=== PATIENT | female | born 1990 | race American Indian/Alaskan Native ===

== ENCOUNTER 2018-09-10 16:10 | Emergency (ER) | payer OTHER ==
[2018-09-10 16:20] VITALS: BP 141/87
--- NOTE | 2018-09-10 16:21 | Emergency Department Report ---
Chief Complaint: Abdominal Pain Stated Complaint: ABD PAIN/CHEST PAIN Time Seen by Provider: 09/10/18 16:21 - HPI History of Present Illness: EPIGASTRIC PAIN W RADIATION TO THROAT CO N/V STATES NOT PREG PMH NONE PSH NONE NKDA RX NONE THC CIG MSE COMPLETED - Exam Vital Signs: Vital Signs 09/10/18 16:19 Temperature 98 F Pulse Rate 80 Respiratory 16 Rate Blood Pressure 141/87 [Right] O2 Sat by Pulse 97 Oximetry MSE screening note: Focused history and physical exam performed. Due to findings the following was ordered: ED Disposition for MSE Condition: Stable Instructions: Abdominal Pain (ED)
[2018-09-10] MEDS ORDERED: ZOFRAN ODT PO/SL ONE (16:22)
[2018-09-10] MEDS ORDERED: LIDOCAINE VISCOUS 2% PO ONE (16:22)
[2018-09-10] MEDS ORDERED: PEPCID PO ONE (16:22)
[2018-09-10] MEDS ORDERED: ALUM-MAG HYDROX-SIMETH 200-200-20MG/5ML PO ONE (16:22)
[2018-09-10 16:52] LABS: Basophils % (Auto) 0.5 % (0.0-1.8); Eosinophils # (Auto) 0.3 K/mm3 (0.0-0.4); Eosinophils % (Auto) 3.8 % (0.0-4.3); Hematocrit 38.8 % (30.3-42.9); Lymphocytes # (Auto) 2.7 K/mm3 (1.2-5.4); Lymphocytes % (Auto) 32.7 % (13.4-35.0); Mean Corpuscular HGB Conc 34 % (30-34); Mean Corpuscular Volume 83 fl (79-97); Monocytes # (Auto) 0.7 K/mm3 (0.0-0.8); Monocytes % (Auto) 8.6 % (0.0-7.3); Platelet Count 256 K/mm3 (140-440); Red Blood Count 4.68 M/mm3 (3.65-5.03)
[2018-09-10 17:00] LABS: Bilirubin,Urine NEG (Negative); Blood,Urine NEG (Negative); Color,Urine Yellow (Yellow); Protein,Urine <15 mg/dL mg/dL (Negative); Urobilinogen,Urine < 2.0 mg/dL (<2.0)
[2018-09-10 17:18] LABS: Alanine Aminotransferase 15 units/L (7-56); Albumin 3.8 g/dL (3.9-5); BUN/Creatinine Ratio 14; Blood Urea Nitrogen 10 mg/dL (7-17); Calcium 8.9 mg/dL (8.4-10.2); Hemolysis Index 1
[2018-09-10 17:23] LABS: Bilirubin,Direct < 0.2 mg/dL (0-0.2)
--- NOTE | 2018-09-10 18:09 | Emergency Department Report ---
<ZEE VILLEGASShashank Srinivasan - Last Filed: 09/10/18 20:29> ED Abdominal Pain HPI - General Chief Complaint: Abdominal Pain Stated Complaint: ABD PAIN/CHEST PAIN Time Seen by Provider: 09/10/18 16:21 - Related Data Allergies Allergy/AdvReac Type Severity Reaction Status Date / Time No Known Allergies Allergy Verified 09/10/18 16:28 ED Medical Decision Making - Lab Data Result diagrams: 09/10/18 16:42 09/10/18 16:42 ED Disposition Clinical Impression: Abdominal pain Disposition: DC-07 LEFT AGAINST MED ADVICE Condition: Stable Instructions: Abdominal Pain (ED) Referrals: MAURA GALINDO MD [Primary Care Provider] - 3-5 Days Forms: AMA Form <ORLANDO MCKEON - Last Filed: 10/24/18 15:00> ED Abdominal Pain HPI - General Source: patient Mode of arrival: Ambulatory Limitations: No Limitations - History of Present Illness Initial Comments: Patient is a 28-year-old female who is here complaining of some nausea vomiting since last night. Patient is having intermittent epigastric pain as well. Patient's boyfriend states that this is happened remotely in the past to her as well. Patient denies any fevers chills cough cold or congestion. Patient states pain is a 10 out of 10 at worst as a cramping sharp pain in the epigastrium. Migration to: epigastric Severity scale (0 -10): 10 Associated Symptoms: nausea, vomiting. denies: diarrhea ED Review of Systems ROS: Stated complaint: ABD PAIN/CHEST PAIN Other details as noted in HPI Comment: All other systems reviewed and negative ED Past Medical Hx - Past Medical History Previous Medical History?: No - Surgical History Past Surgical History?: No - Social History Smoking Status: Current Every Day Smoker Substance Use Type: Marijuana ED Physical Exam - General Limitations: No Limitations General appearance: alert, in no apparent distress - Head Head exam: Present: atraumatic, normocephalic - Eye Eye exam: Present: normal appearance, PERRL, EOMI - ENT ENT exam: Present: mucous membranes moist - Neck Neck exam: Present: normal inspection. Absent: tenderness - Respiratory Respiratory exam: Present: normal lung sounds bilaterally. Absent: respiratory distress, wheezes, rales, rhonchi, chest wall tenderness - Cardiovascular Cardiovascular Exam: Present: regular rate, normal rhythm, normal heart sounds. Absent: systolic murmur, diastolic murmur, rubs, gallop - GI/Abdominal GI/Abdominal exam: Present: soft, tenderness (epigastric), normal bowel sounds. Absent: distended, guarding, rebound, rigid - Extremities Exam Extremities exam: Present: normal inspection - Back Exam Back exam: Present: normal inspection - Neurological Exam Neurological exam: Present: alert, oriented X3 - Psychiatric Psychiatric exam: Present: normal affect, normal mood - Skin Skin exam: Present: warm, dry, intact, normal color. Absent: rash ED Course Vital Signs 09/10/18 09/10/18 16:19 16:26 Temperature 98 F 98.0 F Pulse Rate 80 80 Respiratory 16 16 Rate Blood Pressure 141/87 Blood Pressure 141/87 [Right] O2 Sat by Pulse 97 97 Oximetry ED Medical Decision Making - Lab Data Result diagrams: 09/10/18 16:42 09/10/18 16:42 Labs 09/10/18 09/10/18 09/10/18 16:42 16:42 16:49 WBC 8.3 RBC 4.68 Hgb 13.0 Hct 38.8 MCV 83 MCH 28 MCHC 34 RDW 14.0 Plt Count 256 Lymph % (Auto) 32.7 [place] % (Auto) 8.6 H Eos % (Auto) 3.8 Baso % (Auto) 0.5 Lymph # 2.7 Winston # 0.7 Eos # 0.3 Baso # 0.0 Seg Neutrophils % 54.4 Seg Neutrophils # 4.5 Sodium 139 Potassium 4.3 Chloride 107.4 H Carbon Dioxide 26 Anion Gap 10 BUN 10 Creatinine 0.7 Estimated GFR > 60 BUN/Creatinine Ratio 14 Glucose 108 H Calcium 8.9 Total Bilirubin 0.20 Direct Bilirubin < 0.2 Indirect Bilirubin 0.0 AST 13 ALT 15 Alkaline Phosphatase 68 Total Protein 6.7 Albumin 3.8 L Albumin/Globulin Ratio 1.3 Lipase 30 HCG, Qual Urine Color Yellow Urine Turbidity Clear Urine pH 7.0 Ur Specific [place] 1.016 Urine Protein <15 mg/dl Urine Glucose (UA) Neg Urine Ketones Neg Urine Blood Neg Urine Nitrite Neg Urine Bilirubin Neg Urine Urobilinogen < 2.0 Ur Leukocyte Esterase Neg Urine WBC (Auto) 1.0 Urine RBC (Auto) 1.0 U Epithel Cells (Auto) 2.0 09/10/18 16:54 WBC RBC Hgb Hct MCV MCH MCHC RDW Plt Count Lymph % (Auto) [place] % (Auto) Eos % (Auto) Baso % (Auto) Lymph # Winston # Eos # Baso # Seg Neutrophils % Seg Neutrophils # Sodium Potassium Chloride Carbon Dioxide Anion Gap BUN Creatinine Estimated GFR BUN/Creatinine Ratio Glucose Calcium Total Bilirubin Direct Bilirubin Indirect Bilirubin AST ALT Alkaline Phosphatase Total Protein Albumin Albumin/Globulin Ratio Lipase HCG, Qual Negative Urine Color Urine Turbidity Urine pH Ur Specific [place] Urine Protein Urine Glucose (UA) Urine Ketones Urine Blood Urine Nitrite Urine Bilirubin Urine Urobilinogen Ur Leukocyte Esterase Urine WBC (Auto) Urine RBC (Auto) U Epithel Cells (Auto) Critical care attestation.: If time is entered above; I have spent that time in minutes in the direct care of this critically ill patient, excluding procedure time. ED Disposition Is pt being admited?: No
--- NOTE | 2018-09-10 20:58 | Ultrasound Report ---
PROCEDURE: US GALLBLADDER TECHNIQUE: Real-time sonography in multiple planes of the gallbladder fossa and CBD with imaging of the adjacent liver, pancreas, and right kidney was performed with image documentation. CPT 00696 HISTORY: Abdominal pain COMPARISONS: None . FINDINGS: Liver: Normal size and echotexture with no evidence of cystic or solid mass lesion. Gallbladder: Fluid filled. No gallstones, wall thickening, pericholecystic fluid, or sonographic Mur phy's sign. Intrahepatic bile ducts: Normal . Extrahepatic bile ducts: Normal. Pancreas: Normal as visualized with suboptimal depiction of the pancreatic tail. Right kidney: Normal echotexture. No focal renal mass, calculus, or hydronephrosis. Other: No free fluid. IMPRESSION: Normal Examination . This document is electronically signed by Pawan Lara MD., September 10 2018 08:57:08 PM ET
== END 2018-09-10 20:35 | disposition left against medical advice (07) ==
LOC: ED 16:10
DX: R10.13 Epigastric pain (principal); R11.2 Nausea with vomiting, unspecified; F17.200 Nicotine dependence, unspecified, uncomplicated; F12.10 Cannabis abuse, uncomplicated
CPT/HCPCS: 36415; 76705; 80048; 80076; 81001; 83690; 84703; 85025; 93005; 93010; Q0162

== ENCOUNTER 2020-08-04 07:52 | Emergency (ER) | payer SELFPAY ==
[2020-08-04 08:01] VITALS: BP 120/91
[2020-08-04] MEDS ORDERED: DIPHENOXYLATE/ATROPINE TAB PO ONE (08:02)
[2020-08-04] MEDS ORDERED: KETOROLAC 10 MG TAB PO ONE (08:02)
[2020-08-04] MEDS ORDERED: ONDANSETRON 4 MG ODT TAB PO ONE (08:02)
--- NOTE | 2020-08-04 08:06 | Emergency Department Report ---
- General Chief Complaint: Upper Respiratory Infection Stated Complaint: HEADACHE/SORETHROAT/CONGESTED Time Seen by Provider: 08/04/20 08:02 Source: patient Mode of arrival: Ambulatory Limitations: No Limitations - History of Present Illness Initial Comments: 30-year-old female presents to the ER today with complaints of flulike symptoms. She states that her symptoms started yesterday. She reports generalized body aches, URI symptoms: Sore throat, productive cough, headache, nausea and diarrhea. Denies any vomiting. He reports no shortness of breath or wheezing, chest pain or abdominal pain. She denies any UTI symptoms. She denies any recent ill contacts, bad food intake or recent antibiotic use or travel. Her last menstrual cycle was July 09, 2020. She has a history of tobacco use but denies any other significant past history. MD Complaint: cough, rhinorrhea, nasal congestion, other (Bodyaches) -: days(s) (1) - Related Data Previous Rx's Medication Instructions Recorded Last Taken Type Diphenoxylate/Atropine [Lomotil] 1 tab PO Q6H PRN #20 tablet 08/04/20 Unknown Rx Ketorolac [Toradol] 10 mg PO Q6H PRN #20 tablet 08/04/20 Unknown Rx Ondansetron [Zofran Odt] 4 mg PO Q8HR PRN #15 tab.rapdis 08/04/20 Unknown Rx guaiFENesin/DEXTROMETHORPHAN 1 each PO 12 #20 tab.er.12h 08/04/20 Unknown Rx [Mucinex Dm ER 600-30 mg Tablet] Allergies Allergy/AdvReac Type Severity Reaction Status Date / Time No Known Allergies Allergy Verified 09/10/18 16:28 ED Review of Systems ROS: Stated complaint: HEADACHE/SORETHROAT/CONGESTED Other details as noted in HPI Comment: All other systems reviewed and negative Constitutional: denies: chills, fever Eyes: denies: eye pain, eye discharge, vision change ENT: throat pain Respiratory: cough Gastrointestinal: nausea, diarrhea Neurological: headache ED Past Medical Hx - Past Medical History Previous Medical History?: Yes Additional medical history: Vaginal delivery x 2 - Surgical History Past Surgical History?: No - Social History Smoking Status: Current Every Day Smoker Substance Use Type: Marijuana - Medications Home Medications: Home Medications Medication Instructions Recorded Confirmed Last Taken Type Diphenoxylate/Atropine [Lomotil] 1 tab PO Q6H PRN #20 tablet 08/04/20 Unknown Rx Ketorolac [Toradol] 10 mg PO Q6H PRN #20 tablet 08/04/20 Unknown Rx Ondansetron [Zofran Odt] 4 mg PO Q8HR PRN #15 tab.rapdis 08/04/20 Unknown Rx guaiFENesin/DEXTROMETHORPHAN 1 each PO 12 #20 tab.er.12h 08/04/20 Unknown Rx [Mucinex Dm ER 600-30 mg Tablet] ED Physical Exam - General Limitations: No Limitations General appearance: alert, in no apparent distress - Head Head exam: Present: atraumatic, normocephalic, normal inspection - Eye Eye exam: Present: normal appearance, PERRL, EOMI Pupils: Present: normal accommodation - Expanded ENT Exam Expanded TM/Canal exam: Erythema: Right TM, Left TM, Effusion: Right TM, Left TM Mouth exam: Present: normal external inspection Throat exam: Positive: tonsillar erythema. Negative: tonsillomegaly, R peritonsillar mass, L peritonsillar mass - Neck Neck exam: Present: normal inspection, full ROM, lymphadenopathy. Absent: meningismus - Respiratory Respiratory exam: Present: normal lung sounds bilaterally. Absent: respiratory distress - Cardiovascular Cardiovascular Exam: Present: regular rate, normal rhythm, normal heart sounds - GI/Abdominal GI/Abdominal exam: Present: soft. Absent: distended, tenderness - Back Exam Back exam: Present: full ROM - Neurological Exam Neurological exam: Present: alert, oriented X3, CN II-XII intact, normal gait - Psychiatric Psychiatric exam: Present: normal affect, normal mood - Skin Skin exam: Present: intact ED Course Vital Signs 08/04/20 08/04/20 08:00 08:13 Temperature 99.1 F Pulse Rate 94 H Respiratory 20 20 Rate Blood Pressure 120/91 [Right] O2 Sat by Pulse 100 Oximetry ED Medical Decision Making - Radiology Data Radiology results: report reviewed [facility] [address] [place] [address] XRay Report Signed Patient: LAWRENCE RUSS MR#: [id number] : 1990 Acct:[id number] Age/Sex: 30 / F ADM Date: 08/04/20 Loc: ED Attending Dr: Ordering Physician: LAURA WHITE Date of Service: 08/04/20 Procedure(s): XR chest routine 2V Accession Number(s): [id number] cc: LAURA WHITE Fluoro Time In Minutes: CHEST PA AND LATERAL VIEWS INDICATION: Cough. COMPARISON: None. FINDINGS: Support devices: None. Heart: Within normal limits. Lungs/Pleura: No acute pulmonary or pleural findings. IMPRESSION: 1. No acute findings. Signer Name: Kendall Rowley MD Signed: 08/04/2020 9:03 AM Workstation Name: [id number] Transcribed By: BAYRON Dictated By: Kendall Rowley MD Electronically Authenticated By: Kendall Rowley MD Signed Date/Time: 08/04/20902 DD/ 2 TD/TT: - Medical Decision Making The patient is resting comfortably, is alert and in no distress. The patient has normal mental status and is neurologically intact. The patient appears well and there is no significant dehydration. There is no respiratory distress and no signs of systemic toxicity. The history, exam, diagnostic testing and current condition do not demonstrate an infectious process such as meningitis, severe pneumonia, retropharyngeal abscess, epiglottitis, sepsis or other serious bacterial infection requiring further testing, treatment, consultation or admission at this time. Discussed x-ray results, strep results, suspected diagnosis and treatment plan with patient. The vital signs have been stable. The patient's condition is stable and appropriate for discharge. Recommend that she follows up to get an outpatient Covid test. She was instructed to follow- up closely with primary care doctor. She understands to return if her symptoms changes or worsens in any way. Critical care attestation.: If time is entered above; I have spent that time in minutes in the direct care of this critically ill patient, excluding procedure time. ED Disposition Clinical Impression: Viral syndrome Disposition: DC-01 TO HOME OR SELFCARE Is pt being admited?: No Does the pt Need Aspirin: No Condition: Stable Instructions: Viral Illness, Adult Additional Instructions: I recommend that she follow-up for an outpatient COVID-19 test. Take the medications as prescribed. Drink lots of fluids. You can continue taking cough cold medications from [id number] as directed. Return to the ER if your symptoms changes or worsens in any way. Prescriptions: Diphenoxylate/Atropine [Lomotil] 1 tab PO Q6H PRN #20 tablet PRN Reason: Diarrhea guaiFENesin/DEXTROMETHORPHAN [Mucinex Dm ER 600-30 mg Tablet] 1 each PO 12 #20 tab.er.12h Ketorolac [Toradol] 10 mg PO Q6H PRN #20 tablet PRN Reason: Pain Ondansetron [Zofran Odt] 4 mg PO Q8HR PRN #15 tab.rapdis PRN Reason: Nausea Referrals: LEIDA PARIS MD [Staff Physician] - 3-5 Days Forms: Work/School Release Form(ED) Time of Disposition: 09:21
--- NOTE | 2020-08-04 09:07 | XRay Report ---
CHEST PA AND LATERAL VIEWS INDICATION: Cough. COMPARISON: None. FINDINGS: Support devices: None. Heart: Within normal limits. Lungs/Pleura: No acute pulmonary or pleural findings. IMPRESSION: 1. No acute findings. Signer Name: Kendall Rowley MD Signed: 08/04/2020 9:03 AM Workstation Name: [id number]
== END 2020-08-04 09:44 | disposition home or self-care (01) ==
LOC: ED 07:52
DX: B34.9 Viral infection, unspecified (principal); F17.200 Nicotine dependence, unspecified, uncomplicated; F12.90 Cannabis use, unspecified, uncomplicated; Z79.899 Other long term (current) drug therapy
CPT/HCPCS: 71046; 87116; 87430; Q0162

== ENCOUNTER 2021-02-27 13:27 | Emergency (ER) | payer BC ==
[2021-02-27 15:35] LABS: HCG Qualitative,Urine Positive (Negative)
[2021-02-27 17:12] LABS: Basophils % (Auto) 0.5 % (0.0-1.8); Eosinophils # (Auto) 0.1 K/mm3 (0.0-0.4); Eosinophils % (Auto) 1.4 % (0.0-4.3); Hematocrit 37.3 % (30.3-42.9); Hemoglobin 12.4 gm/dl (10.1-14.3); Lymphocytes # (Auto) 2.3 K/mm3 (1.2-5.4); Lymphocytes % (Auto) 28.8 % (13.4-35.0); Mean Corpuscular HGB Conc 33 % (30-34); Mean Corpuscular Volume 89 fl (79-97); Monocytes # (Auto) 0.6 K/mm3 (0.0-0.8); Monocytes % (Auto) 7.5 % (0.0-7.3); Platelet Count 262 K/mm3 (140-440); Red Blood Count 4.22 M/mm3 (3.65-5.03); Red Cell Distribution Width 13.5 % (13.2-15.2)
--- NOTE | 2021-02-27 17:31 | Emergency Department Report ---
ED HPI - General Chief complaint: Abdominal Pain Stated complaint: ABD PAIN/DIZZNESS Time Seen by Provider: 02/27/21 16:32 Source: patient Mode of arrival: Ambulatory Limitations: No Limitations - History of Present Illness Initial comments: The patient was evaluated in the emergency department for symptoms described in the history of present illness. He/she was evaluated in the context of the global COVID-19 pandemic, which necessitated consideration that the patient might be at risk for infection with the virus that causes COVID-19. Ins titutional protocols and algorithms that pertain to the evaluation of patients at risk for COVID-19 are in a state of rapid change based on information released by regulatory bodies including the CDC and federal and state organizations. These policies and algorithms were followed during the patient's care in the emergency department. Please note that these policies, procedures and recommendations changed on a rapid basis. 31-year-old -[place] female who presents to the emergency room for 4 to 5-day history of vaginal spotting while . Patient reports her last menstrual period was 01/19/2021. Patient reports her pain is on the right lower quadrant. She denies any dysuria she does admit to nausea and vomiting. Does not have any history no surgical history. She is not vaccinated. She is 4 para 2. She has not started following a [facility] at this moment. MD Complaint: abdominal pain, vaginal bleeding Onset/Timin -: days(s) Location: pelvis Radiation: none Severity scale (0 -10): 4 Quality: cramping Consistency: intermittent Improves with: none Worsens with: none Associated symptoms: nausea/vomiting, vaginal bleeding Vaginal bleeding: light :: Yes OB History - Current : no complications OB History - Previous Pregnancies: no complications Last menstrual period: 01/19/21 Pre-uvaldo care: followed by OB - Related Data : 4 Para: 2 Previous Rx's Medication Instructions Recorded Last Taken Type Diphenoxylate/Atropine [Lomotil] 1 tab PO Q6H PRN #20 tablet 08/04/20 Unknown Rx Ketorolac [Toradol] 10 mg PO Q6H PRN #20 tablet 08/04/20 Unknown Rx Ondansetron [Zofran Odt] 4 mg PO Q8HR PRN #15 tab.rapdis 08/04/20 Unknown Rx guaiFENesin/DEXTROMETHORPHAN 1 each PO 12 #20 tab.er.12h 08/04/20 Unknown Rx [Mucinex Dm ER 600-30 mg Tablet] Vit-Fe Fumar-FA [ 1 tab PO QDAY #90 tablet 02/27/21 Unknown Rx Vitamin] Allergies Allergy/AdvReac Type Severity Reaction Status Date / Time No Known Allergies Allergy Verified 09/10/18 16:28 ED Review of Systems ROS: Stated complaint: ABD PAIN/DIZZNESS Other details as noted in HPI Comment: All other systems reviewed and negative ED Past Medical Hx - Past Medical History Previous Medical History?: No Additional medical history: Vaginal delivery x 2 - Surgical History Past Surgical History?: No - Social History Smoking Status: Current Every Day Smoker Substance Use Type: Marijuana - Medications Home Medications: Home Medications Medication Instructions Recorded Confirmed Last Taken Type Diphenoxylate/Atropine [Lomotil] 1 tab PO Q6H PRN #20 tablet 08/04/20 Unknown Rx Ketorolac [Toradol] 10 mg PO Q6H PRN #20 tablet 08/04/20 Unknown Rx Ondansetron [Zofran Odt] 4 mg PO Q8HR PRN #15 tab.rapdis 08/04/20 Unknown Rx guaiFENesin/DEXTROMETHORPHAN 1 each PO 12 #20 tab.er.12h 08/04/20 Unknown Rx [Mucinex Dm ER 600-30 mg Tablet] Vit-Fe Fumar-FA [ 1 tab PO QDAY #90 tablet 02/27/21 Unknown Rx Vitamin] ED Physical Exam - General Limitations: No Limitations General appearance: alert, in no apparent distress - Head Head exam: Present: atraumatic, normocephalic - Eye Eye exam: Present: normal appearance - ENT ENT exam: Present: normal external ear exam - Neck Neck exam: Present: full ROM - Respiratory Respiratory exam: Present: normal lung sounds bilaterally, chest wall tenderness - Cardiovascular Cardiovascular Exam: Present: regular rate - GI/Abdominal GI/Abdominal exam: Present: soft, tenderness (rlq) - Extremities Exam Extremities exam: Present: normal inspection, full ROM - Back Exam Back exam: Present: normal inspection, full ROM - Neurological Exam Neurological exam: Present: alert, oriented X3, normal gait - Psychiatric Psychiatric exam: Present: normal affect, normal mood - Skin Skin exam: Present: warm, dry, intact, normal color. Absent: rash ED Course Vital Signs 02/27/21 13:40 Temperature 98.9 F Pulse Rate 85 Respiratory 18 Rate Blood Pressure 120/73 O2 Sat by Pulse 97 Oximetry ED Medical Decision Making - Lab Data Result diagrams: 02/27/21 16:39 02/27/21 16:39 Laboratory Tests 02/27/21 02/27/21 02/27/21 14:44 16:39 16:39 WBC RBC Hgb Hct MCV MCH MCHC RDW Plt Count Lymph % (Auto) [place]bert % (Auto) Eos % (Auto) Baso % (Auto) Lymph # (Auto) [place]bert # (Auto) Eos # (Auto) Baso # (Auto) Seg Neutrophils % Seg Neutrophils # Sodium Potassium Chloride Carbon Dioxide Anion Gap BUN Creatinine Estimated GFR BUN/Creatinine Ratio Glucose Calcium Total Bilirubin AST ALT Alkaline Phosphatase Total Protein Albumin Albumin/Globulin Ratio HCG, Quant 80525 H Urine Color Yellow Urine Turbidity Clear Urine pH 7.0 Ur Specific [place] 1.010 Urine Protein <15 mg/dl Urine Glucose (UA) Neg Urine Ketones Neg Urine Blood Neg Urine Nitrite Neg Ur Reducing Substances Not Reportable Urine Bilirubin Neg Urine Ictotest Not Reportable Urine Urobilinogen < 2.0 Ur Leukocyte Esterase Neg Urine WBC (Auto) 2.0 Urine RBC (Auto) 2.0 U Epithel Cells (Auto) 7.0 Urine Mucus Few Urine HCG, Qual Positive A Blood Type O POSITIVE Ord Rhogam Gestat Weeks Rh pos 02/27/21 02/27/21 16:39 16:39 WBC 8.0 RBC 4.22 Hgb 12.4 Hct 37.3 MCV 89 MCH 29 MCHC 33 RDW 13.5 Plt Count 262 Lymph % (Auto) 28.8 [place] % (Auto) 7.5 H Eos % (Auto) 1.4 Baso % (Auto) 0.5 Lymph # (Auto) 2.3 [place] # (Auto) 0.6 Eos # (Auto) 0.1 Baso # (Auto) 0.0 Seg Neutrophils % 61.8 Seg Neutrophils # 5.0 Sodium 136 L Potassium 4.2 Chloride 102.5 Carbon Dioxide 23 Anion Gap 15 BUN 6 L Creatinine 0.5 L Estimated GFR > 60 BUN/Creatinine Ratio 12 Glucose 96 Calcium 9.2 Total Bilirubin 0.30 AST 13 ALT 11 Alkaline Phosphatase 54 Total Protein 7.0 Albumin 3.8 L Albumin/Globulin Ratio 1.2 HCG, Quant Urine Color Urine Turbidity Urine pH Ur Specific [place] Urine Protein Urine Glucose (UA) Urine Ketones Urine Blood Urine Nitrite Ur Reducing Substances Urine Bilirubin Urine Ictotest Urine Urobilinogen Ur Leukocyte Esterase Urine WBC (Auto) Urine RBC (Auto) U Epithel Cells (Auto) Urine Mucus Urine HCG, Qual Blood Type Ord Rhogam Gestat Weeks - Radiology Data Radiology results: report reviewed Other Patient ID My Comment(s) Study Comments [facility] [address] [place] [address] Ultrasound Report Signed Patient: LAWRENCE ARTIS MR#: [id number] : 1990 Acct:[id number] Age/Sex: 31 / F ADM Date: 02/27/21 Loc: ED Attending Dr: Ordering Physician: MOUNIKA ALBRIGHT Date of Service: 02/27/21 Procedure(s): US OB <= 14 weeks fetus Accession Number(s): [id number] cc: MOUNIKA ALBRIGHT ULTRASOUND OBSTETRIC INDICATION / CLINICAL INFORMATION: peg spotting. Clinical Gestational Age ([place]): 5.4 weeks.days TECHNIQUE: Transabdominal and Transvaginal. COMPARISON: None available. FINDINGS: GESTATIONAL SAC: Well-defined oval shape and intrauterine in location. YOLK SAC: No significant abnormality. EMBRYO/FETUS: No significant abnormality. - Lastrup-Rump Length = 0.3 cm = 5.6 weeks.days - Heart Rate, beats per minute (if present) = 66 ADNEXA: No significant abnormality. FREE FLUID: None. ADDITIONAL FINDINGS: None. IMPRESSION: 1. Single, living intrauterine with estimated sonographic age of 5.6 weeks.days. Signer Name: Brad Wolf MD Signed: 02/27/2021 6:42 PM Workstation Name: [id number] Transcribed By: JOSE MIGUEL Dictated By: Brad Wolf MD Electronically Authenticated By: Brad Wolf MD Signed Date/Time: 02/27/211841 DD/ 39 TD/TT: - Medical Decision Making 31-year-old -[place] female who presents to the emergency room for 4 to 5-day history of vaginal spotting while . Patient reports her last menstrual period was 01/19/2021. Patient reports her pain is on the right lower quadrant. She denies any dysuria she does admit to nausea and vomiting. Does not have any history no surgical history. She is not vaccinated. She is 4 para 2. She has not started following a [facility] at this moment. Ultrasound showed you are 5 weeks and 6 days with intrauterine gestation.. Recommend patient to follow-up with [facility] to have serial hCGs if she continues to bleed. I recommend for her to pelvic rest which means no intercourse. Critical care attestation.: If time is entered above; I have spent that time in minutes in the direct care of this critically ill patient, excluding procedure time. ED Disposition Clinical Impression: Threatened miscarriage Disposition: HOME / SELF CARE / HOMELESS Is pt being admited?: No Does the pt Need Aspirin: No Condition: Stable Instructions: Abdominal Pain (ED), Threatened Miscarriage, [id number], Activity Restriction During Additional Instructions: Ultrasound shows uterus 5 weeks and 6 days . I recommend pelvic rest which includes no intercourse no tampons no foreign object in the vaginal area. Recommend no strenuous exercising. I recommend to follow-up with your [facility] in the next 3 to 5 days. I have listed 1 below for your convenience. Prescriptions: Vit-Fe Fumar-FA [ Vitamin] 1 tab PO QDAY #90 tablet Referrals: [facility] [Provider Group] - 3-5 Days [facility] [Provider Group] - 3-5 Days [facility] [Provider Group] - 3-5 Days Forms: Work/School Release Form(ED)
[2021-02-27 17:44] LABS: Alanine Aminotransferase 11 units/L (7-56); Albumin 3.8 g/dL (3.9-5); Blood Urea Nitrogen 6 mg/dL (7-17); Calcium 9.2 mg/dL (8.4-10.2); Hemolysis Index 14
[2021-02-27 17:47] LABS: BUN/Creatinine Ratio 12
[2021-02-27 17:47] LABS: Bilirubin,Urine NEG (Negative); Blood,Urine NEG (Negative); Color,Urine Yellow (Yellow); Mucus,Urine FEW /HPF; Protein,Urine <15 mg/dL mg/dL (Negative); Urobilinogen,Urine < 2.0 mg/dL (<2.0)
--- NOTE | 2021-02-27 18:46 | Ultrasound Report ---
ULTRASOUND OBSTETRIC INDICATION / CLINICAL INFORMATION: peg spotting. Clinical Gestational Age (GA): 5.4 weeks.days TECHNIQUE: Transabdominal and Transvaginal. COMPARISON: None available. FINDINGS: GESTATIONAL SAC: Well-defined oval shape and intrauterine in location. YOLK SAC: No significant abnormality. EMBRYO/FETUS: No significant abnormality. - [place]-Rump Length = 0.3 cm = 5.6 weeks.days - Heart Rate, beats per minute (if present) = 66 ADNEXA: No significant abnormality. FREE FLUID: None. ADDITIONAL FINDINGS: None. IMPRESSION: 1. Single, living intrauterine with estimated sonographic age of 5.6 weeks.days. Signer Name: Brad Wolf MD Signed: 02/27/2021 6:42 PM Workstation Name: [id number]
[2021-02-27 20:36] VITALS: BP 127/82
--- NOTE | 2021-03-04 08:14 | Ultrasound Report ---
ULTRASOUND OB TRANSVAGINAL on 02/27/2021. TECHNIQUE: Transvaginal ultrasound with color Doppler imaging. HISTORY: Vaginal spotting FINDINGS: This examination is just presented to me for dictation because the technologist did not com plete the exam for dictation on 02/27/2021. The images were dictated along with the transabdominal OB ultrasound performed the same day. Please refer to that report. Signer Name: Lyle Figueroa Jr, MD Signed: 03/04/2021 8:09 AM Workstation Name: [id number]
== END 2021-02-27 20:26 | disposition home or self-care (01) ==
LOC: ED 13:27
DX: O20.0 Threatened abortion (principal); Z3A.01 Less than 8 weeks gestation of pregnancy; F17.290 Nicotine dependence, other tobacco product, uncomplicated
CPT/HCPCS: 36415; 76801; 76817; 80053; 81001; 81025; 82962; 84702; 85025; 86900; 86901; 99284